=== PATIENT | male | born 1950 | race Caucasian/White ===

== ENCOUNTER 2017-03-19 12:23 | Emergency (ER) | payer OTHER ==
[~2017-03-19] VITALS: Ht 182.9 cm; Wt 107.8 kg
[2017-03-19] MEDS ORDERED: ATORVASTATIN CA10 MG PO (13:15)
[2017-03-19 13:16] LABS: HEMATOCRIT 47.2 % (38.0-50.0); MCH 32.9 PG (29.0-34.0); MCV 94.2 FL (86-99); MEAN PLAT.VOLUME 10.4 uM^3 (9.0-12.4); PLATELET COUNT 192 K/uL (156-360); RBC DIS.WIDTH-CV 12.5 % (11.8-14.6); RBC DIS.WIDTH-SD 43.3 % (39-53); RED BLOOD COUNT 5.01 M/uL (4.00-5.50); WHITE BLOOD COUNT 10.1 K/uL (4.1-10.2)
[2017-03-19] MEDS ORDERED: ALLOPURINOL100 MG PO (13:16)
[2017-03-19] MEDS ORDERED: CARVEDILOL12.5 MG PO (13:16)
[2017-03-19] MEDS ORDERED: HYDROCHLOROTH12.5 M3 PO (13:16)
[2017-03-19] MEDS ORDERED: VALSARTAN320 MG PO (13:17)
[2017-03-19 13:38] LABS: ANION GAP 12 MEQ/L (2-14); CHLORIDE 100 MEQ/L (99-109); SAMPLE HEMOLYSIS CHECK 0; SAMPLE ICTERIC CHECK 0; SAMPLE LIPEMIA CHECK 0; SODIUM 137 MEQ/L (136-147)
[2017-03-19 13:43] LABS: GFR ESTIMATE (CALCULATED) 29 mL/min/ (58.99-99999); GLUCOSE 112 mg/dL (70-99); UREA NITROGEN (BUN) 40 mg/dL (9-23)
[2017-03-19 13:44] LABS: ADD MIUA? YES; BILIRUBIN SMALL; BLOOD NEGATIVE; COLOR AMBER ((YELLOW)); GLUCOSE (STRIP) NEGATIVE; KETONES NEGATIVE; LEUKOCYTES NEGATIVE; NITRITE NEGATIVE; PROTEIN (STRIP) 100; SPECIFIC GRAVITY 1.029 (1.000-1.030)
[2017-03-19 13:58] LABS: BACTERIA 1+ /HPF; EPITHELIAL CELLS RARE /HPF; HYALINE CASTS TNTC /LPF; MUCUS 4+ /LPF; UCUL ADDED? YES
[2017-03-19 14:20] LABS: ALKALINE PHOSPHATASE 50 IU/L (3-129); DIRECT BILIRUBIN 0.1 mg/dL (0.0-0.3); TOTAL BILIRUBIN 0.9 MG/DL (0.0-1.0)
[2017-03-19 17:41] VITALS: BP 119/84
== END 2017-03-19 17:42 | disposition left against medical advice (07) ==
LOC: EME 12:23
DX: R05 Cough (principal); E86.0 Dehydration; I10 Essential (primary) hypertension; Z88.0 Allergy status to penicillin; Z53.20 Procedure and treatment not carried out because of patient's decision for unspecified reasons
CPT/HCPCS: 74176; 80048; 80076; 81003; 83605; 85027; 87040; 87086; 93005; 99281; 99285; J7030